=== PATIENT | male | born 1960 | race Caucasian/White ===

== ENCOUNTER 2016-08-05 11:00 | Inpatient (IN) | payer BC ==
[2016-07-29 17:35] LABS: HEMATOCRIT 43.3 % (40.0-51.0)
[2016-07-29 17:54] LABS: ASCORBIC ACID (UR NOT ORDER) NEG (NEG); BILIRUBIN, URINE NEGATIVE (NEG); KETONE, URINE NEGATIVE (NEG); LEUKOCYTE ESTERASE(NOT OR NEG (NEG); WBC (NOT ORDERED) (RFLEX) 1 (0-5)
--- NOTE | ~2016-08-05 | OP ---
Record Of Operation [facility] [address] [place]. [address] NAME: AFTAB ROSE : 56 STATUS : ADM IN PAT#: [id number] AGE: 56 ADM/REG DATE : 08/05/16 MR#: [id number] REPORT SERV DATE: 08/05/16 DICTATED BY: ARAMIS SMITH JR. DATE: 08/05/16 REPORT STATUS : Draft TRANSCRIBED BY: MODL DATE: 08/05/16 DATE OF PROCEDURE: 08/05/2016 SURGEON: Aramis Smith M.D. PREOPERATIVE DIAGNOSIS: Right Bosniak III cyst, centrally located. POSTOPERATIVE DIAGNOSIS: Right Bosniak III cyst, centrally located. PROCEDURE PERFORMED: Laparoscopic radical nephrectomy on the right with adrenalectomy. COMPLICATIONS: None. CONSULTATIONS: None. ANESTHESIA: General with an endotracheal tube. SPECIMENS: Right kidney, right adrenal. ESTIMATED BLOOD LOSS: 100 mL. INDICATION: Mr. Rose is a 56-year-old gentleman, who has a history of a Bosniak III enhancing cyst in the renal hilar area of the right kidney approximately 4 cm in size. It is sitting just above the renal vein, and looks to be mostly an endophytic cyst. He comes today for laparoscopic radical nephrectomy with adrenalectomy on the right side. PROCEDURE IN DETAIL: After the patient was identified, and proper informed consent was obtained, he was taken to the operating room, general anesthesia was performed without complication using an endotracheal tube. He was then prepped and draped in a modified thoracoabdominal position. A midline incision through the umbilicus was made, and a 12 mm trocar was placed through the umbilicus into the peritoneal cavity. I did not note any prior adhesions or injuries that would require takedown. He has not had any prior surgery to create these injuries or adhesions. I then placed two other 12 mm trocars, one just to the right of the falciform ligament, the other in the right lower quadrant, and a 5 mm trocar at the costophrenic angle. The costophrenic angle trocar was used as a liver retractor placing the Goldie-Flex retractor on the retractor summers, lifting the liver off the anterior surface of the kidney. I then began by mobilizing the right hemicolon by incising the renal colic ligaments in the white line of Toldt. I reflected the colon medially off the anterior surface of the duodenum. The duodenum was Kocherized to expose the vena cava. Vena cava was cleared of its fascial investments from the liver all the way down to the gonadal vessels. I then dissected along the gonadal vein laterally down to the psoas muscle to identify the ureter. The ureter was ligated and transected, and then the Gerota's fascia was transected across its inferior portion using the Harmonic scalpel. I then continued my dissection laterally to the superior pole of the kidney along with posteriorly to get behind the renal hilum. I then cleared the renal hilum of its fascial investments identifying one renal vein and two renal arteries. The renal arteries were Record Of Operation [address] [place]. [address] NAME: AFTAB ROSE : 56 STATUS : ADM IN [facility]#: [id number] AGE: 56 ADM/REG DATE : 08/05/16 MR#: [id number] REPORT SERV DATE: 08/05/16 DICTATED BY: ARAMIS SMITH JR. DATE: 08/05/16 REPORT STATUS : Draft TRANSCRIBED BY: YVONNE DATE: 08/05/16 ligated using hemoclips, the renal vein using an endovascular PORSHA stapling device. There was one small area of bleeding after placing the PORSHA on the renal vein, this was closed using a 3-0 Prolene suture in a [id number] fashion and this stopped that bleeding without really much difficulty. I then continued by dissection superiorly to identify several adrenal veins. These were ligated using hemoclips and transected using Endo Lyubov. Once, around the superior pole of the adrenal gland, I used an endovascular PORSHA stapling device to transect the superior portion of Gerota's fascia along the diaphragm, and using the Harmonic Scalpel, completed the dissection in the right upper quadrant. Once the kidney had been completely freed up from the retroperitoneum, I inspected for hemostasis. I irrigated the retroperitoneum copiously with sterile saline. I then placed a 15 mm Endobag through the umbilicus and placed the kidney specimen within the Endobag and brought the neck of the Endobag out through with my umbilical incision and enlarged the incision to approximately 6 cm and removed the specimen whole. I then irrigated each of the wounds, closing them at the fascia level with a 0 looped PDS suture, 3-0 Vicryl in the Ijeoma's fascia and a 4-0 Monocryl on the skin. Telfa and Tegaderm were used for dressing at all incision sites. The patient was awakened in the operating room and transferred to the postanesthesia care unit in stable condition. JEREMIAS/YVONNE Aramis Smith Jr., M.D. / [id number] CC: Jaswinder Gabriel Jr., M.D.
--- NOTE | ~2016-08-05 | DS ---
Discharge Summary [facility] [address] [place]. [address] NAME: AFTAB SIMPSON : 56 STATUS : DIS IN PAT#: [id number] AGE: 56 ADM/REG DATE : 08/05/16 MR#: [id number] REPORT SERV DATE: 08/15/16 DICTATED BY: ARAMIS SMITH JR. DATE: 08/14/16 REPORT STATUS : Draft TRANSCRIBED BY: YVONNE DATE: 08/14/16 Data Collection from hospitalization DISCHARGE DIAGNOSES: 1. Right Bosniak III cyst centrally located. 2. Chronic obstructive pulmonary disease, stable. 3. Gastroesophageal reflux disease. CONSULTANTS: None. PROCEDURES PERFORMED: Laparoscopic radical nephrectomy on the right with adrenalectomy, 08/05/2016. PATHOLOGY: Right kidney and adrenal gland, nephrectomy, renal cell carcinoma. MEDICATIONS: Colace 100 mg twice daily, Protonix 40 mg daily, Percocet 7.5/325 one every six hours as needed. CONDITION AT DISCHARGE: Upon discharge, he did appear to be doing well and had no complaints. DISPOSITION: He was discharged home to continue a full-liquid diet with activity as discussed. He was to follow up with me in the office in two weeks. HOSPITAL COURSE: This 56-year-old male had a history of Bosniak III enhancing cyst in the renal hilar area of the right kidney, approximately 4 cm in size. It was sitting just above the renal vein and looked to be mostly an endophytic cyst. He was admitted for laparoscopic radical nephrectomy with adrenalectomy on the right side and further treatment. Upon admission to the hospital, he had been taken to the operating room where he did undergo the above procedure. He tolerated this well and was transferred to the recovery room. On postop day #1, he was afebrile and his vital signs were stable. He had been placed on a clear liquid diet and did tolerate this. His Rdz catheter had been removed. On postop day #2, he had no new complaints and had continued to do well. His creatinine was at 1.3. On postop day #3, he still not had flatus or bowel movement yet. He was felt to be doing well otherwise and was encouraged to ambulate. He had been given Dulcolax and was placed on a full-liquid diet. On postop day #4, he did continue to do well and was noted to have had a bowel movement. He did remain in stable condition and was then discharged with the above instructions. Information collected by: Julee Queen. I submit the above information as my discharge summary. DEB/YVONNE Aramis Smith Jr., M.D. / [id number] Discharge Summary [address] [address] NAME: AFTAB SIMPSON : 56 STATUS : DIS IN PAT#: [id number] AGE: 56 ADM/REG DATE : 08/05/16 MR#: [id number] REPORT SERV DATE: 08/15/16 DICTATED BY: ARAMIS SMITH JR. DATE: 08/14/16 REPORT STATUS : Draft TRANSCRIBED BY: YVONNE DATE: 08/14/16 CC: Jaswinder Gabriel Jr., M.D.
[~2016-08-05 11:00] MED LIST: ANTIBIOTICS; PERCOCET 7.5/321 TAB PO; PROTONIX PO
[2016-08-05 17:09] LABS: BASOPHILS 0.1 %; BASOPHILS ABSOLUTE 0.01 10/3/uL (0.0-0.16); EOSINOPHILS 0.3 %; EOSINOPHILS ABSOLUTE 0.04 10/3/uL (0.0-0.53); HEMATOCRIT 42.7 % (40.0-51.0); HEMOGLOBIN 14.9 g/dL (13.6-17.8); IMMATURE GRANULOCYTES 0.6 %; IMMATURE GRANULOCYTES ABSOLUTE 0.07 10/3/uL (0.0-0.11); LYMPHOCYTES 12.4 %; LYMPHOCYTES ABSOLUTE 1.42 10/3/uL (0.67-4.30); MEAN CORPUS HGB CONC 34.9 g/dL (32.0-36.0); MEAN CORPUSCULAR HEMOGLOB 32.9 pg (26.0-34.0); MEAN CORPUSCULAR VOLUME 94.3 fL (80-100); MEAN PLATELET VOLUME 9.5 fL (9.2-13.0); MONOCYTES 3.2 %; MONOCYTES ABSOLUTE 0.37 10/3/uL (0.21-1.20); NEUTROPHILS 83.4 %; NEUTROPHILS ABSOLUTE 9.57 10/3/uL (2.02-8.40); PLATELET COUNT 186 10/3/uL (150-400); RBC DISTRIBUTION WIDTH 12.9 % (12.0-16.0); RED CELL COUNT 4.53 10/6/uL (4.7-6.1); WHITE BLOOD CELLS 11.5 10/3/uL (4.5-10.5)
[2016-08-05 17:11] LABS: MANUAL DIFF NO %
[2016-08-05 17:19] LABS: BUN (BLOOD UREA NITROGEN) 12 MG/DL (6-23); CHLORIDE, SERUM 109 MMOL/L (96-112); CO2 (CARBON DIOXIDE) 25 MMOL/L (24-34); SODIUM, SERUM 142 MMOL/L (135-148)
[2016-08-05 17:20] LABS: CALCIUM, SERUM 8.1 MG/DL (8.5-10.4); CREATININE 1.51 MG/DL (0.70-1.30); GFR AFRICAN AMERICAN 58 ML/MIN (>=60); GFR NON AFRICAN AMERICAN 50 ML/MIN (>=60); GLUCOSE, SERUM 137 MG/DL (60-99)
[2016-08-06 05:31] LABS: BASOPHILS 0.1 %; BASOPHILS ABSOLUTE 0.01 10/3/uL (0.0-0.16); EOSINOPHILS 0 %; HEMATOCRIT 43.6 % (40.0-51.0); HEMOGLOBIN 14.9 g/dL (13.6-17.8); IMMATURE GRANULOCYTES 0.4 %; IMMATURE GRANULOCYTES ABSOLUTE 0.06 10/3/uL (0.0-0.11); LYMPHOCYTES 10.8 %; LYMPHOCYTES ABSOLUTE 1.48 10/3/uL (0.67-4.30); MEAN CORPUS HGB CONC 34.2 g/dL (32.0-36.0); MEAN CORPUSCULAR HEMOGLOB 32.6 pg (26.0-34.0); MEAN CORPUSCULAR VOLUME 95.4 fL (80-100); MEAN PLATELET VOLUME 10.1 fL (9.2-13.0); MONOCYTES 11.4 %; MONOCYTES ABSOLUTE 1.56 10/3/uL (0.21-1.20); NEUTROPHILS 77.3 %; NEUTROPHILS ABSOLUTE 10.63 10/3/uL (2.02-8.40); PLATELET COUNT 211 10/3/uL (150-400); RBC DISTRIBUTION WIDTH 13.1 % (12.0-16.0); RED CELL COUNT 4.57 10/6/uL (4.7-6.1); WHITE BLOOD CELLS 13.7 10/3/uL (4.5-10.5)
[2016-08-06 05:37] LABS: MANUAL DIFF NO %
[2016-08-06 05:44] LABS: BUN (BLOOD UREA NITROGEN) 13 MG/DL (6-23); CALCIUM, SERUM 8.4 MG/DL (8.5-10.4); CHLORIDE, SERUM 104 MMOL/L (96-112); CO2 (CARBON DIOXIDE) 25 MMOL/L (24-34); GFR AFRICAN AMERICAN 64 ML/MIN (>=60); GFR NON AFRICAN AMERICAN 55 ML/MIN (>=60); GLUCOSE, SERUM 122 MG/DL (60-99); POTASSIUM, SERUM 4.5 MMOL/L (3.5-5.3); SODIUM, SERUM 140 MMOL/L (135-148)
[2016-08-07 05:21] LABS: BASOPHILS 0.2 %; BASOPHILS ABSOLUTE 0.03 10/3/uL (0.0-0.16); EOSINOPHILS 1.3 %; EOSINOPHILS ABSOLUTE 0.18 10/3/uL (0.0-0.53); HEMATOCRIT 41.9 % (40.0-51.0); HEMOGLOBIN 14.3 g/dL (13.6-17.8); IMMATURE GRANULOCYTES 0.2 %; IMMATURE GRANULOCYTES ABSOLUTE 0.03 10/3/uL (0.0-0.11); LYMPHOCYTES ABSOLUTE 1.88 10/3/uL (0.67-4.30); MEAN CORPUS HGB CONC 34.1 g/dL (32.0-36.0); MEAN CORPUSCULAR HEMOGLOB 32.9 pg (26.0-34.0); MEAN CORPUSCULAR VOLUME 96.5 fL (80-100); MEAN PLATELET VOLUME 10.3 fL (9.2-13.0); MONOCYTES 13.8 %; MONOCYTES ABSOLUTE 1.85 10/3/uL (0.21-1.20); NEUTROPHILS 70.5 %; NEUTROPHILS ABSOLUTE 9.46 10/3/uL (2.02-8.40); PLATELET COUNT 195 10/3/uL (150-400); RBC DISTRIBUTION WIDTH 13.2 % (12.0-16.0); RED CELL COUNT 4.34 10/6/uL (4.7-6.1); WHITE BLOOD CELLS 13.4 10/3/uL (4.5-10.5)
[2016-08-07 05:22] LABS: BUN (BLOOD UREA NITROGEN) 10 MG/DL (6-23); CALCIUM, SERUM 8.4 MG/DL (8.5-10.4); CHLORIDE, SERUM 106 MMOL/L (96-112); CO2 (CARBON DIOXIDE) 25 MMOL/L (24-34); CREATININE 1.31 MG/DL (0.70-1.30); GFR AFRICAN AMERICAN 69 ML/MIN (>=60); GFR NON AFRICAN AMERICAN 60 ML/MIN (>=60); GLUCOSE, SERUM 126 MG/DL (60-99); POTASSIUM, SERUM 4.1 MMOL/L (3.5-5.3); SODIUM, SERUM 139 MMOL/L (135-148)
[2016-08-07 05:25] LABS: MANUAL DIFF NO %
[2016-08-08 04:50] LABS: BASOPHILS 0.1 %; BASOPHILS ABSOLUTE 0.01 10/3/uL (0.0-0.16); EOSINOPHILS 2.4 %; EOSINOPHILS ABSOLUTE 0.23 10/3/uL (0.0-0.53); HEMATOCRIT 43.9 % (40.0-51.0); HEMOGLOBIN 14.5 g/dL (13.6-17.8); IMMATURE GRANULOCYTES 0.4 %; IMMATURE GRANULOCYTES ABSOLUTE 0.04 10/3/uL (0.0-0.11); LYMPHOCYTES 15.6 %; LYMPHOCYTES ABSOLUTE 1.48 10/3/uL (0.67-4.30); MEAN CORPUSCULAR HEMOGLOB 32.2 pg (26.0-34.0); MEAN CORPUSCULAR VOLUME 97.6 fL (80-100); MEAN PLATELET VOLUME 9.9 fL (9.2-13.0); MONOCYTES 16.2 %; MONOCYTES ABSOLUTE 1.54 10/3/uL (0.21-1.20); NEUTROPHILS 65.3 %; NEUTROPHILS ABSOLUTE 6.18 10/3/uL (2.02-8.40); PLATELET COUNT 176 10/3/uL (150-400); RBC DISTRIBUTION WIDTH 12.9 % (12.0-16.0); WHITE BLOOD CELLS 9.5 10/3/uL (4.5-10.5)
[2016-08-08 04:59] LABS: MANUAL DIFF NO %
[2016-08-08 05:05] LABS: BUN (BLOOD UREA NITROGEN) 10 MG/DL (6-23); CALCIUM, SERUM 8.4 MG/DL (8.5-10.4); CHLORIDE, SERUM 102 MMOL/L (96-112); CO2 (CARBON DIOXIDE) 27 MMOL/L (24-34); CREATININE 1.43 MG/DL (0.70-1.30); GFR AFRICAN AMERICAN 62 ML/MIN (>=60); GFR NON AFRICAN AMERICAN 54 ML/MIN (>=60); GLUCOSE, SERUM 103 MG/DL (60-99); POTASSIUM, SERUM 4.2 MMOL/L (3.5-5.3); SODIUM, SERUM 139 MMOL/L (135-148)
[2016-08-09 07:03] LABS: BASOPHILS 0.1 %; BASOPHILS ABSOLUTE 0.01 10/3/uL (0.0-0.16); EOSINOPHILS 3.7 %; EOSINOPHILS ABSOLUTE 0.34 10/3/uL (0.0-0.53); HEMATOCRIT 41.2 % (40.0-51.0); IMMATURE GRANULOCYTES 0.4 %; IMMATURE GRANULOCYTES ABSOLUTE 0.04 10/3/uL (0.0-0.11); LYMPHOCYTES 19.3 %; LYMPHOCYTES ABSOLUTE 1.76 10/3/uL (0.67-4.30); MEAN CORPUSCULAR HEMOGLOB 32.9 pg (26.0-34.0); MEAN CORPUSCULAR VOLUME 96.7 fL (80-100); MONOCYTES 11.7 %; MONOCYTES ABSOLUTE 1.07 10/3/uL (0.21-1.20); NEUTROPHILS 64.8 %; NEUTROPHILS ABSOLUTE 5.91 10/3/uL (2.02-8.40); PLATELET COUNT 189 10/3/uL (150-400); RBC DISTRIBUTION WIDTH 12.4 % (12.0-16.0); RED CELL COUNT 4.26 10/6/uL (4.7-6.1); WHITE BLOOD CELLS 9.1 10/3/uL (4.5-10.5)
[2016-08-09 07:04] LABS: MANUAL DIFF NO %
[2016-08-09 07:31] LABS: BUN (BLOOD UREA NITROGEN) 9 MG/DL (6-23); CALCIUM, SERUM 8.8 MG/DL (8.5-10.4); CHLORIDE, SERUM 106 MMOL/L (96-112); CO2 (CARBON DIOXIDE) 25 MMOL/L (24-34); CREATININE 1.34 MG/DL (0.70-1.30); GFR AFRICAN AMERICAN 67 ML/MIN (>=60); GFR NON AFRICAN AMERICAN 58 ML/MIN (>=60); GLUCOSE, SERUM 107 MG/DL (60-99); POTASSIUM, SERUM 4.6 MMOL/L (3.5-5.3); SODIUM, SERUM 140 MMOL/L (135-148)
[2016-08-09] MEDS ORDERED: NORCO1 TA2 PO (10:31)
== END 2016-08-09 15:41 | disposition home or self-care (01) | DRG 661 ==
LOC: SDC/OF 11:00 → 4SO 19:53
PROVIDERS: Urology
PROC: 0GT34ZZ Resection of Right Adrenal Gland, Percutaneous Endoscopic Approach (ICD-10-PCS; principal; 2016-08-05 13:15)
PROC: 0TT04ZZ Resection of Right Kidney, Percutaneous Endoscopic Approach (ICD-10-PCS; principal; 2016-08-05 13:15)
DX: N28.1 Cyst of kidney, acquired (principal); J44.9 Chronic obstructive pulmonary disease, unspecified; Z88.0 Allergy status to penicillin; K21.9 Gastro-esophageal reflux disease without esophagitis; Z79.891 Long term (current) use of opiate analgesic; Z79.2 Long term (current) use of antibiotics; G47.33 Obstructive sleep apnea (adult) (pediatric); F17.210 Nicotine dependence, cigarettes, uncomplicated; Z79.82 Long term (current) use of aspirin
CPT/HCPCS: 36415; 80048; 81001; 85014; 85018; 85025; 86850; 86900; 86901; 88305; 88307; 93005; A9270-GY; J0360; J0690; J0694; J2250; J2270; J2405; J2550; J2710; J2795; J3010; P9045